=== PATIENT | female | born 1935 | race Caucasian/White ===

== ENCOUNTER 2025-02-23 12:10 | Emergency (ER) | payer MEDICARE ==
[~2025-02-23] VITALS: Ht 152.4 cm; Wt 68.7 kg
[2025-02-23 12:14] VITALS: TEMP 98.5
--- NOTE | 2025-02-23 12:56 | RADIOLOGY REPORT ---
Right FEET: 3 view(s) were obtained HISTORY: FOOT PAIN COMPARISON: None TECHNIQUE: FINDINGS: The bones are severely demineralized. Right foot: There is cortical irregularity with erosion along the medial aspect of the 1st metatarsal head and at the base of the 1st proximal phalanx. There is mild soft tissue swelling. IMPRESSION: 1. Findings concerning for osteomyelitis of the 1st metatarsal head and base of the 1st proximal phal anx. Questionable superimposed fracture. This can be better assessed with MRI.
[2025-02-23] MEDS: acetaminophen 325mg tablet PO ONE (13:30)
[2025-02-23 13:31] VITALS: BP 162/88; PULSE 88; RESP 16; O2SAT 96
--- NOTE | 2025-02-23 13:39 | ELECTROCARDIOGRAPH REPORT ---
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 René Narvaez Measurements Intervals Boles Rate: 88 P: 73 NH: 196 QRS: -33 QRSD: 134 T: 34 QT: 390 QTc: 472 Interpretive Statements Atrial-paced complexes Probable left atrial enlargement Right bundle branch block Electronically Signed On 02-28-2025 18:39:[address] René Narvaez Please click the below link to view image of tracing.
--- NOTE | 2025-02-23 13:47 | Physician Documentation ---
History of Present Illness ~ Chief Complaint: Foot pain Stated Complaint: FOOT PAIN Time Seen by MD: 12:28 HPI This is an 89-year-old female who presents with two weeks of progressively worsening pain to her right medial foot at the base of her 1st toe, patient reports pain is worse when walking or standing on her right foot. Patient reports no fevers, chills, or other systemic symptoms. Patient reports she feels otherwise well. Reports no other acute symptoms or concerns. Tetanus witin 5 years: Yes Medication Reconciliation Allergies: Coded Allergies: No Known Allergies (Unverified , 02/23/25) Scheduled Cephalexin*Monohydrate* (Keflex*), 1 CAP PO QID Sulfamethoxazole/Trimethoprim (Septra Ds Tab), 1 TAB PO Q12H Past Medical History Past Medical History: No Pertinent History Smoking Status: Former smoker Review of Systems ROS Right foot pain and redness as stated above in the HPI, otherwise all systems are reviewed and negative. Physical Exam Vital Signs: Temperature: 98.5, Source: Temporal, Heart Rate: 88, Respiratory Rate: 16, BP: 162/88, Pulse Oximetry: 96, Weight: 68.700 Oxygen Flow Rate: 0 Physical Exam VITALS: Reviewed and as above. GENERAL: Alert and oriented x4, nontoxic appearing, no apparent distress. RESPIRATORY: No increased work of breathing, no respiratory distress, speaking in full clear sentences, clear lung sounds in all rice CV: Rate and rhythm, systolic murmur GI: Nondistended MUSCULOSKELETAL: Medial aspect of right foot at base of 1st toe erythematous with tenderness to palpation to dorsal aspect. SKIN: Nontender erythema extending on medial aspect of right foot, skin intact Progress Results/Orders Results/Orders Orders - TRINA SUMMERS Foot, Complete (3vw Min) (02/23/25 12:32) Culture Blood (02/23/25 13:22) Completed Orders - TRINA SUMMERS Foot, Complete (3vw Min) (02/23/25 12:32) Acetaminophen 325mg Tablet (Tylenol Tabl (02/23/25 13:25) ESR (02/23/25 13:22) C-Reactive Protein (02/23/25 13:22) Cbc/Diff (02/23/25 13:22) BMP (02/23/25 13:22) Procalcitonin (02/23/25 13:22) Electrocardiogram (02/23/25 13:22) Lacticsepsis (02/23/25 13:22) Vancomycin*Pharmacy To Dose* (Vancomycin (02/23/25 14:45) Ceftriaxone 2gm/D5w 50ml Bag (Rocephin 2 (02/23/25 14:45) Normal Saline 1000ml (Sodium Chloride 10 (02/23/25 14:45) Vancomycin/H2o 500mg/100ml Pb (Vancomyci (02/23/25 15:03) Non Formulary (02/26/25 14:30) Medications Received in ER Medications (Trade) Dose Ordered Sig/Flores Route PRN Reason Start Time Stop Time Status Last Admin Dose Admin Ceftriaxone Sodium/Dextrose 50 ml @ 100 mls/hr ONCE ONCE IV 02/23/25 14:45 02/23/25 15:14 DC 02/23/25 15:57 100 MLS/HR (sodium chloride 1000ml IV soln) 1,000 ml ONCE ONCE IVB 02/23/25 14:45 02/23/25 14:47 DC 02/23/25 15:57 1,000 ML Vancomycin HCl 100 ml @ 100 mls/hr Q24H@1500 IV 02/23/25 15:03 02/23/25 17:45 DC 02/23/25 15:57 100 MLS/HR Vital Signs 02/23/25 02/23/25 12:14 13:31 Temp 98.5 Pulse 110 88 Resp 15 16 B/P (MAP) 178/85 162/88 (112) Pulse Ox 97 96 O2 Flow Rate 0 Laboratory Tests Test 02/23/25 13:48 02/23/25 13:49 Lactic Acid Level 2.7 H White Blood Count 12.3 H Red Blood Count 4.94 Hemoglobin 14.5 Hematocrit 43.6 Mean Corpuscular Volume 88.2 Mean Corpuscular Hemoglobin 29.4 Mean Corpuscular Hemoglobin Concent 33.3 Red Cell Distribution Width 13.7 Platelet Count 301 Mean Platelet Volume 9.1 Neutrophils (%) (Auto) 77.9 H Lymphocytes (%) (Auto) 15.0 L Monocytes (%) (Auto) 5.2 Eosinophils (%) (Auto) 1.4 Basophils (%) (Auto) 0.5 Neutrophils # (Auto) 9.6 H Lymphocytes # (Auto) 1.9 Monocytes # (Auto) 0.6 Eosinophils # (Auto) 0.2 Basophils # (Auto) 0.1 CBC Comment Erythrocyte Sedimentation Rate 42 H Sodium Level 137 Potassium Level 4.6 Chloride Level 103 Carbon Dioxide Level 25.5 Anion Gap 9 Blood Urea Nitrogen 24 H Creatinine 2.03 H Estimated GFR/1.73 m2 23 BUN/Creatinine Ratio 11.8 Glucose Level 108 H Calcium Level 10.3 H C-Reactive Protein 3.13 H Albumin 3.2 L Procalcitonin < 0.05 Chemistry Comments Microbiology Date/Time Source Procedure Growth Status 02/23/25 13:56 Blood Arm Left Blood Culture - Preliminary NEGATIVE (LESS THAN 24 HOURS) Resulted EKG/XRAY/CT/US/VASC/MRI EKG : Additional Comment EKG at 1338 interpreted by myself as sinus rhythm at a rate of 88, left axis deviation, right bundle branch block, nonspecific ST changes Bone/Soft Tissue X-Ray (Ext.) : Additional Comment Right FEET: 3 view(s) were obtained HISTORY: FOOT PAIN COMPARISON: None TECHNIQUE: FINDINGS: The bones are severely demineralized. Right foot: There is cortical irregularity with erosion along the medial aspect of the 1st metatarsal head and at the base of the 1st proximal phalanx. There is mild soft tissue swelling. IMPRESSION: 1. Findings concerning for osteomyelitis of the 1st metatarsal head and base of the 1st proximal phalanx. Questionable superimposed fracture. This can be better assessed with MRI. Electronically Signed by:YESY MANCIA MD Date & Time: 02/23/25 1255 Dictated by: YESY MANCIA MD Dictation date and time: 02/23/25 1254 I have reviewed and agree with the radiology report. I have reviewed and interpreted the imaging as: No fracture or dislocation observed. Abnormality to 1st metatarsal Medical Decision Making Findings This is 89-year-old female who presented for right medial foot pain, the area was erythematous and the dorsal aspect tender to palpation. X-ray obtained demonstrated evidence of osteomyelitis which was supported by lab work indicating likely osteomyelitis, plan was to admit patient for IV antibiotics and follow up MRI though patient reports strong preference for discharge and outpatient follow up over admission. IV fluids and antibiotics initiated, patient offered medication for pain though declined. I had a discussion with the patient about her lab work indicating a serious infection and patient reported that she would stay for a course of IV antibiotics but would leave against medical advice as she has matters to attend to at home, patient reports that she will return at 2000 tonight to be admitted to the hospital. Patient is currently hemodynamically stable though has been advised of the risk of permanent disability or if she leaves the hospital at this moment. Due to patient reporting she would leave prior to further studies the follow up MRI was not ordered. Patient has left the emergency department against medical advice, patient was provided outpatient antibiotics to decrease her chance of serious complication though patient was advised that outpatient management of her infection is still against medical advice, patient has been given very careful return to care precautions including being instructed to return to the emergency department at any time if she changes her mind about admission. Foot Diff Dx:Considerations: Include: Abrasion, Cellulitis, Contusion, Dislocation, Fracture-phalynx, Fracture-tarsal, Ingrown toenail, Neurovascular injury, Sprain, Septic, Subungual hematoma Toe Diff Dx:Considerations: Include: Abrasion, Cellulitis, Dislocation Departure Disposition: LEFT AGAINST MEDICAL ADVICE Impression: Primary Impression: Osteomyelitis of right foot Qualified Codes: M86.9 - Osteomyelitis, unspecified Condition: Guarded Additional Instructions: I have recommended you be admitted to the hospital for IV antibiotics as you have a very serious infection in your foot with evidence that it is spreading to the rest of your body, this may result in you losing your foot or possibly losing your life. Despite this morning you have chosen to leave the emergency department prior to finishing treatment for this infection. I have prescribed you a course of antibiotics which may decrease the chance of serious complications but I can not guarantee your safety if you leave, I recommend you returned to the emergency department as soon as you can for admission to the hospital for IV antibiotics as we have discussed. Otherwise Please follow up with your primary care provider in the next few days. Please return to the emergency department for any new or worsening concerning symptoms, or if you change your mind about being admitted. Referrals: NO PRIMARY CARE PROVIDER (PCP) Prescriptions Sulfamethoxazole/Trimethoprim (Septra Ds Tab) 800 Mg/160 Mg Tablet 1 TAB PO Q12H for 10 Days, #20 TAB Prov: TRINA SUMMERSP 02/23/25 Cephalexin*Monohydrate* (Keflex*) 500 Mg Capsule 1 CAP PO QID for 10 Days, #40 CAP Prov: TRINA SUMMERS 02/23/25 Education Educated: Patient Educated regarding: diagnosis, treatment, prognosis, need for follow up Signature Scribe Signature: No scribe Attestation: The note accurately reflects work and decisions made by me.BIANCA Langford 02/23/25 22:15 TRINA SUMMERS Feb 23, 2025 13:47
[2025-02-23 14:24] LABS: BASOPHILS # (AUTO) 0.1 X10'3 (0-0.2); BASOPHILS % (AUTO) 0.5 % (0-1); EOSINOPHILS # (AUTO) 0.2 X10'3 (0-0.9); EOSINOPHILS % (AUTO) 1.4 % (0-6); HEMATOCRIT 43.6 % (35.0-45.0); HEMOGLOBIN 14.5 g/dl (12.0-16.0); LYMPHOCYTES # (AUTO) 1.9 X10'3 (1.1-4.8); MEAN CORPUSCULAR HEMOGLOBIN 29.4 PG (27.0-31.0); MEAN CORPUSCULAR HGB CONC 33.3 g/dL (33.0-36.5); MEAN CORPUSCULAR VOLUME 88.2 FL (78-98); MEAN PLATELET VOLUME 9.1 FL (7.4-10.4); MONOCYTES # (AUTO) 0.6 X10'3 (0-0.9); MONOCYTES % (AUTO) 5.2 % (2-12); NEUTROPHILS # (AUTO) 9.6 X10'3 (1.8-7.7); NEUTROPHILS % (AUTO) 77.9 % (42-75); PLATELET COUNT 301 X10'3 (140-440); RED BLOOD COUNT 4.94 X10'6 (4.20-5.60); RED CELL DISTRIBUTION WIDTH 13.7 % (11.5-14.5); WHITE BLOOD COUNT 12.3 X10'3 (4.5-11.0)
[2025-02-23 14:31] LABS: ALBUMIN 3.2 G/DL (3.4-5.0); ANION GAP 9 (8-16); BLOOD UREA NITROGEN 24 MG/DL (7-18); BUN/CREATININE RATIO 11.8 (10.0-20.0); C-REACTIVE PROTEIN 3.13 MG/DL (0.0-0.5); CALCIUM 10.3 MG/DL (8.5-10.1); CHLORIDE 103 MMOL/L (99-107); CREATININE 2.03 MG/DL (0.40-0.90); GLUCOSE 108 MG/DL (70-104); POTASSIUM 4.6 MMOL/L (3.5-5.1); SODIUM 137 MMOL/L (135-145); TOTAL CARBON DIOXIDE 25.5 MMOL/L (24-32); eCRCL 14 ML/MIN; eGFR 23 ML/MIN
[2025-02-23] MEDS: normal saline 1000ML IV soln IVB ONE (15:57)
[2025-02-23] MEDS: VANCOMYCIN 500MG/WATER FOR INJ (PEG) PREMIX 100 ML IV SCH (15:57)
[2025-02-23] MEDS: CefTRIAXone 2gm/D5W 50ml BAG 50 ML IV ONE (15:57)
[2025-02-23] MEDS ORDERED: CEPH-585 PO (17:27)
[2025-02-23] MEDS ORDERED: SULF1TAB45 PO (17:27)
[2025-02-26] MEDS ORDERED: VANCOMYCIN LEVEL IV ONE (14:30)
== END 2025-02-23 17:45 | disposition left against medical advice (07) ==
LOC: ER 12:11
DX: M86.8X7 Other osteomyelitis, ankle and foot (principal)
CPT/HCPCS: 36415; 73630; 80048; 83605; 84145; 85025; 85651; 86140; 87040; 93005; 96365; 96368; 99285; J0696; J3372; J7030